=== PATIENT | female | born 1950 | race Caucasian/White ===

== ENCOUNTER 2018-01-22 10:22 | Emergency (ER) | payer MEDICARE ==
[~2018-01-22] VITALS: Ht 162.6 cm; Wt 90.9 kg
[2018-01-22 10:35] VITALS: Ht 162.6 cm; Wt 90.9 kg
[2018-01-22] MEDS ORDERED: NIFEDIPINE ER90 MG PO (10:39)
[2018-01-22] MEDS ORDERED: MOBIC7.5 MG (10:39)
[2018-01-22] MEDS ORDERED: MINOCIN100 MG PO (10:40)
[2018-01-22] MEDS ORDERED: SYNTHROID50 MCG PO (10:40)
[2018-01-22] MEDS ORDERED: LOSARTAN POTASS25 MG PO (10:40)
[2018-01-22] MEDS ORDERED: TIROSINT100 MCG PO (10:40)
[2018-01-22] MEDS ORDERED: ASPIRIN325 MG PO (10:41)
[2018-01-22] MEDS ORDERED: CALCIUM (10:41)
[2018-01-22] MEDS ORDERED: MULTI-DAY VITAM1 TAB PO (10:41)
[2018-01-22] MEDS ORDERED: MEDROL DOSE PACK4 MG PO (11:54)
[2018-01-22 12:12] VITALS: BP 148/76
== END 2018-01-22 12:13 | disposition home or self-care (01) ==
LOC: D.ER 10:22
DX: M25.461 Effusion, right knee (principal); I10 Essential (primary) hypertension; F17.200 Nicotine dependence, unspecified, uncomplicated

== ENCOUNTER 2018-03-12 16:41 | Emergency (ER) | payer MEDICARE ==
[~2018-03-12] VITALS: Ht 162.6 cm; Wt 90.9 kg
[~2018-03-12 16:41] MED LIST: ASPIRIN325 MG PO; CALCIUM; LOSARTAN POTASS25 MG PO; MEDROL DOSE PACK4 MG PO; MINOCIN100 MG PO; MOBIC7.5 MG; MULTI-DAY VITAM1 TAB PO; NIFEDIPINE ER90 MG PO; SYNTHROID50 MCG PO; TIROSINT100 MCG PO
[2018-03-12 16:44] VITALS: Ht 162.6 cm; Wt 90.9 kg
[2018-03-12] MEDS ORDERED: HYDROCODON-ACE1 EAC7 PO (18:01)
[2018-03-12] MEDS ORDERED: EC-NAPROSYN500 MG PO (18:01)
[2018-03-12 18:25] VITALS: BP 155/74
== END 2018-03-12 18:28 | disposition home or self-care (01) ==
LOC: D.ER 16:41
DX: M25.552 Pain in left hip (principal); M16.12 Unilateral primary osteoarthritis, left hip; I10 Essential (primary) hypertension; F17.200 Nicotine dependence, unspecified, uncomplicated

== ENCOUNTER 2019-08-17 10:12 | Emergency (ER) | payer MEDICARE ==
[~2019-08-17] VITALS: Ht 162.6 cm; Wt 98.6 kg
[~2019-08-17 10:12] MED LIST changes: +EC-NAPROSYN500 MG PO; +HYDROCODON-ACE1 EAC7 PO
[2019-08-17 10:18] VITALS: Ht 162.6 cm; Wt 98.6 kg
[2019-08-17] MEDS ORDERED: VOLTAREN25 MG PO (11:50)
[2019-08-17] MEDS ORDERED: BUTALB-APAP-CA1 EACH PO (11:50)
[2019-08-17 12:06] VITALS: BP 119/71
== END 2019-08-17 12:07 | disposition home or self-care (01) ==
LOC: D.ER 10:12
DX: H92.02 Otalgia, left ear (principal); R51 Headache; H53.8 Other visual disturbances; E07.9 Disorder of thyroid, unspecified; I10 Essential (primary) hypertension

== ENCOUNTER 2019-10-23 17:55 | Emergency (ER) | payer MEDICARE ==
[~2019-10-23] VITALS: Ht 162.6 cm; Wt 98.6 kg
[~2019-10-23 17:55] MED LIST changes: +BUTALB-APAP-CA1 EACH PO; +VOLTAREN25 MG PO
[2019-10-23 18:02] VITALS: Ht 162.6 cm; Wt 98.6 kg
[2019-10-23] MEDS ORDERED: LIPITOR20 MG PO (18:05)
[2019-10-23 18:34] LABS: BILIRUBIN NEGATIVE (NEGATIVE); GLUCOSE NEGATIVE (NEGATIVE); KETONE NEGATIVE (NEGATIVE); NITRITE NEGATIVE (NEGATIVE); SPECIFIC GRAVITY 1.025 (1.005-1.020); UROBILINOGEN NORMAL (NORMAL)
[2019-10-23 18:50] LABS: BASOPHILS 0.3 % (0-2); EOSINOPHILS 1.9 % (0-7); HEMATOCRIT 44.9 % (36.0-48.0); HEMOGLOBIN 14.8 g/dL (12-16); IMMATURE GRANULOCYTES 0.5 % (0-5); LYMPHOCYTES 27.4 % (15-50); MCH 31.8 pg (26.0-34.0); MCV 96.4 fL (80.0-100.0); MEAN PLATELET VOLUME 9.7 fL (7.4-10.4); NEUTROPHILS 62.9 % (40-80); PLATELET COUNT 273 10x3/uL (130-400); RBC 4.66 10x6/uL (4.00-5.40); RDW 14.5 % (11.5-14.5); WBC 10.8 10x3/uL (4.8-10.8)
[2019-10-23 18:57] LABS: CALC OSMOLALITY 281 mosm/kg (275-300); CALCIUM 8.7 mg/dL (8.5-10.1); CARBON DIOXIDE 32.5 mmol/L (21.0-32.0); CHLORIDE - SERUM 103 mmol/L (98-107); CREATININE - SERUM 0.8 mg/dL (0.6-1.3); GLUCOSE 117 mg/dL (74-106); POTASSIUM - SERUM 3.4 mmol/L (3.5-5.1); SODIUM 139 mmol/L (136-145); UREA NITROGEN 20 mg/dL (7-18); eGFR NON AFRICAN AMERICAN 75 mL/min (90-120)
[2019-10-23 19:03] LABS: ALBUMIN 3.8 g/dL (3.4-5.0); ALKALINE PHOSPHATASE 78 U/L (30-120); ALT (SGPT) 36 U/L (10-68); BILIRUBIN - TOTAL 0.34 mg/dL (0.2-1.3); PROTEIN - SERUM 6.8 g/dL (6.4-8.2)
[2019-10-23] MEDS ORDERED: GAS-X180 MG PO (19:29)
[2019-10-23] MEDS ORDERED: MIRALAX17 GM PO (19:29)
[2019-10-23 19:53] VITALS: BP 185/94
== END 2019-10-23 19:51 | disposition home or self-care (01) ==
LOC: D.ER 17:55
PROVIDERS: Family Medicine
DX: R14.3 Flatulence (principal); K59.09 Other constipation; E03.9 Hypothyroidism, unspecified; I10 Essential (primary) hypertension; Z72.0 Tobacco use; R10.9 Unspecified abdominal pain